=== PATIENT | female | born 1990 | race Caucasian/White ===

== ENCOUNTER 2020-12-16 10:32 | Outpatient (CLI) | payer OTHER, SELFPAY ==
[2020-12-16 19:07] LABS: Basophils Absolute Auto 0.1 K/mm3 (0.0-0.1); Basophils Percent Auto 0.3 % (0.2-1.2); Eosinophils Absolute Auto 0.2 K/mm3 (0-0.3); Eosinophils Percent Auto 1.4 % (0-4.4); Hemoglobin 10.5 g/dL (12.0-15.0); Immature Granulocyte Absolute 0.07 K/mm3 (0.00-0.031); Immature Granulocyte Percent A 0.5 % (0-0.5); Lymphocytes Absolute Auto 2.88 K/mm3 (0.9-3.2); Lymphocytes Percent Auto 19.9 % (18.3-44.2); Mean Corpuscular HGB Conc 31.8 g/dl (32-36); Mean Corpuscular Hemoglobin 27.8 pg (26-34); Mean Corpuscular Volume 87.3 fl (80-100); Mean Platelet Volume 9.5 fl (7.4-10.4); Monocytes Absolute Auto 0.8 K/mm3 (0.1-0.6); Monocytes Percent Auto 5.7 % (2.6-8.5); Neutrophils Absolute Auto 10.4 K/mm3 (1.3-6.7); Neutrophils Percent Auto 72.2 % (45.5-73.1); Platelet Count Result 372 k/mm3 (150-375); Red Blood Count 3.78 M/mm3 (4.2-5.4); Red Cell Distribution Width 15.5 % (11.5-14.5); White Blood Count 14.4 K/mm3 (4.5-10.0)
[2020-12-16 19:12] LABS: Add Urine Microscopic? YES; Appearance Urine Cloudy (Clear); Bacteria Urine Trace /hpf; Bilirubin Urine Negative (Negative); Blood Urine Negative (Negative); Color Urine Yellow (Yellow); Glucose Urine UA Negative (Negative); Ketones Urine Negative (Negative); Leukocyte Esterase Ur 1+ LEU/UL (NEGATIVE); Mucus Urine Rare /lpf; Nitrate Urine Negative (Negative); Protein Urine Negative (Negative); RBC Urine 0-2 /hpf (0-2); Specific Grav Ur 1.011 (1.001-1.035); Squamous Epithelial Cell Urine Many /hpf (Few); Urobilinogen Urine Negative mg/dL (<2.0); WBC Urine 0-3 /hpf (0-3)
[2020-12-16 19:35] LABS: Vitamin D 25 Hydroxy 20.3 ng/mL
[2020-12-16 19:52] LABS: Hepatitis B Surface Antigen Negative (Negative); Rubella IgG Antibody 16.9 IU/ML
[2020-12-16 20:01] LABS: HIV 1/2 Ab P24 Ag Result Negative (Negative)
[2020-12-16 20:08] LABS: Hepatitis C Virus Antibody Negative (Negative)
[2020-12-17 09:25] LABS: Rapid Plasma Reagin Non-Reactive (NonReactive)
== END 2020-12-16 10:33 | disposition home or self-care (01) ==
LOC: ANHBWCLAB 10:34
PROVIDERS: Visit Provider Obstetrics & Gynecology
DX: Z34.90 Encounter for supervision of normal pregnancy, unspecified, unspecified trimester (principal); Z3A.00 Weeks of gestation of pregnancy not specified
CPT/HCPCS: 36415; 81001; 82306; 84443; 85025; 86592; 86703; 86762; 86787; 86803; 86850; 86900; 86901; 87086; 87088; 87340; G0432

== ENCOUNTER 2021-01-11 14:23 | Outpatient (CLI) | payer OTHER, SELFPAY ==
[2021-01-11] VITALS (9 sets, daily range): BP systolic 121–131; BP diastolic 64–76; PULSE 70–82
[2021-01-11 15:48] LABS: Alanine Aminotransferase 12 U/L (4-35); Albumin Level 3.9 g/dL (3.5-5.1); Alkaline Phosphatase 88 U/L (38-126); Anion Gap 7 mmol/L (8-16); Aspartate Amino Transferase 19 U/L (14-36); Bilirubin,Total 0.4 mg/dL (0.2-1.3); Blood Urea Nitrogen 7 mg/dL (7-17); Calcium 8.7 mg/dL (8.4-10.2); Carbon Dioxide 23 mmol/L (22-30); Chloride 105 mmol/L (98-107); Estimated Glomerular Filt Rate > 60; Glucose 78 mg/dL (65-110); Potassium 3.3 mmol/L (3.4-5.0); Sodium 135 mmol/L (137-145)
[2021-01-11 15:51] LABS: Basophils Absolute Auto 0.1 K/mm3 (0.0-0.1); Basophils Percent Auto 0.3 % (0.2-1.2); Eosinophils Absolute Auto 0.1 K/mm3 (0-0.3); Eosinophils Percent Auto 0.7 % (0-4.4); Hematocrit 31.2 % (37.0-47.0); Hemoglobin 10.2 g/dL (12.0-15.0); Immature Granulocyte Absolute 0.08 K/mm3 (0.00-0.031); Immature Granulocyte Percent A 0.6 % (0-0.5); Lymphocytes Absolute Auto 2.81 K/mm3 (0.9-3.2); Lymphocytes Percent Auto 19.6 % (18.3-44.2); Mean Corpuscular HGB Conc 32.7 g/dl (32-36); Mean Corpuscular Volume 85.7 fl (80-100); Mean Platelet Volume 9.3 fl (7.4-10.4); Monocytes Absolute Auto 0.9 K/mm3 (0.1-0.6); Monocytes Percent Auto 6.5 % (2.6-8.5); Neutrophils Absolute Auto 10.3 K/mm3 (1.3-6.7); Neutrophils Percent Auto 72.3 % (45.5-73.1); Platelet Count Result 375 k/mm3 (150-375); Red Blood Count 3.64 M/mm3 (4.2-5.4); White Blood Count 14.3 K/mm3 (4.5-10.0)
[2021-01-11 15:53] LABS: Add Urine Microscopic? YES; Appearance Urine Clear (Clear); Bilirubin Urine Negative (Negative); Blood Urine Negative (Negative); Color Urine Yellow (Yellow); Glucose Urine UA Negative (Negative); Ketones Urine Trace mg/dL (Negative); Leukocyte Esterase Ur Trace LEU/UL (NEGATIVE); Mucus Urine Rare /lpf; Nitrate Urine Negative (Negative); Protein Urine 1+ mg/dL (Negative); RBC Urine 0-2 /hpf (0-2); Specific Grav Ur 1.017 (1.001-1.035); Squamous Epithelial Cell Urine Rare /hpf (Few)
[2021-01-11 16:30] LABS: Creatinine Urine 199.1 mg/dL; Total Protein Urine Random 14 mg/dL; Ur Ttl Prot Creatinine Ratio 0.07 mg/mg (0-0.20)
--- NOTE | 2021-01-11 16:30 | PC.NURSE ---
Called Dr. Chow with pt status. Lab results and BPs given. Informed that pt is complaining of headache, nausea, vomiting and BP with systolic of 140's. Informed of variable noted on FHTs. October D/C home.
== END 2021-01-11 16:49 | disposition home or self-care (01) ==
LOC: ANHOBOP 14:29 → ANHOBPP 14:32
PROVIDERS: Visit Provider Obstetrics & Gynecology
DX: O13.9 Gestational [pregnancy-induced] hypertension without significant proteinuria, unspecified trimester (principal); R51.9 Headache, unspecified; R11.2 Nausea with vomiting, unspecified; Z3A.00 Weeks of gestation of pregnancy not specified
CPT/HCPCS: 36415; 80053; 81001; 82570; 84156; 84550; 85025; 87086; 87088; 99199

== ENCOUNTER 2021-02-24 11:14 | Outpatient (CLI) | payer OTHER, SELFPAY ==
[2021-02-24 19:33] LABS: Basophils Absolute Auto 0.1 K/mm3 (0.0-0.1); Basophils Percent Auto 0.4 % (0.2-1.2); Eosinophils Absolute Auto 0.2 K/mm3 (0-0.3); Eosinophils Percent Auto 1.3 % (0-4.4); Hematocrit 31.2 % (37.0-47.0); Immature Granulocyte Absolute 0.16 K/mm3 (0.00-0.031); Immature Granulocyte Percent A 1.1 % (0-0.5); Lymphocytes Absolute Auto 2.36 K/mm3 (0.9-3.2); Lymphocytes Percent Auto 16.9 % (18.3-44.2); Mean Corpuscular HGB Conc 32.1 g/dl (32-36); Mean Corpuscular Hemoglobin 28.9 pg (26-34); Mean Corpuscular Volume 90.2 fl (80-100); Mean Platelet Volume 10.1 fl (7.4-10.4); Monocytes Absolute Auto 0.8 K/mm3 (0.1-0.6); Monocytes Percent Auto 5.5 % (2.6-8.5); Neutrophils Absolute Auto 10.4 K/mm3 (1.3-6.7); Neutrophils Percent Auto 74.8 % (45.5-73.1); Platelet Count Result 379 k/mm3 (150-375); Red Blood Count 3.46 M/mm3 (4.2-5.4)
[2021-02-24 19:43] LABS: Glucose 1 Hour PP 50gm Dose 140 mg/dL
[2021-02-24 20:20] LABS: HIV 1/2 Ab P24 Ag Result Negative (Negative)
== END 2021-02-24 11:15 | disposition home or self-care (01) ==
LOC: ANHBWCLAB 11:15
PROVIDERS: Visit Provider Obstetrics & Gynecology
DX: Z34.90 Encounter for supervision of normal pregnancy, unspecified, unspecified trimester (principal); Z3A.00 Weeks of gestation of pregnancy not specified
CPT/HCPCS: 36415; 82947; 85025; 86703; G0432

== ENCOUNTER 2021-03-16 16:37 | Outpatient (CLI) | payer OTHER, SELFPAY ==
[2021-03-16] VITALS (11 sets, daily range): BP systolic 118–129; BP diastolic 62–76; PULSE 71–87
[2021-03-16 17:45] LABS: Basophils Absolute Auto 0.1 K/mm3 (0.0-0.1); Basophils Percent Auto 0.3 % (0.2-1.2); Eosinophils Absolute Auto 0.1 K/mm3 (0-0.3); Eosinophils Percent Auto 0.7 % (0-4.4); Hematocrit 31.3 % (37.0-47.0); Hemoglobin 10.3 g/dL (12.0-15.0); Immature Granulocyte Absolute 0.17 K/mm3 (0.00-0.031); Lymphocytes Absolute Auto 2.95 K/mm3 (0.9-3.2); Mean Corpuscular HGB Conc 32.9 g/dl (32-36); Mean Corpuscular Hemoglobin 28.9 pg (26-34); Mean Corpuscular Volume 87.9 fl (80-100); Mean Platelet Volume 9.4 fl (7.4-10.4); Monocytes Absolute Auto 0.9 K/mm3 (0.1-0.6); Monocytes Percent Auto 5.2 % (2.6-8.5); Neutrophils Absolute Auto 12.2 K/mm3 (1.3-6.7); Neutrophils Percent Auto 74.8 % (45.5-73.1); Platelet Count Result 380 k/mm3 (150-375); Red Blood Count 3.56 M/mm3 (4.2-5.4); White Blood Count 16.4 K/mm3 (4.5-10.0)
[2021-03-16 17:52] LABS: Add Urine Microscopic? YES; Appearance Urine Clear (Clear); Bacteria Urine Trace /hpf; Bilirubin Urine Negative (Negative); Blood Urine Negative (Negative); Color Urine Straw (Yellow); Glucose Urine UA Negative (Negative); Ketones Urine Negative (Negative); Leukocyte Esterase Ur Trace LEU/UL (NEGATIVE); Nitrate Urine Negative (Negative); Protein Urine Negative (Negative); RBC Urine 0-2 /hpf (0-2); Specific Grav Ur 1.005 (1.001-1.035); Squamous Epithelial Cell Urine Few /hpf (Few); Urobilinogen Urine Negative mg/dL (<2.0); WBC Urine 0-3 /hpf (0-3)
[2021-03-16 18:09] LABS: Alanine Aminotransferase 11 U/L (4-35); Albumin Level 4.1 g/dL (3.5-5.1); Alkaline Phosphatase 122 U/L (38-126); Anion Gap 9 mmol/L (8-16); Aspartate Amino Transferase 17 U/L (14-36); Bilirubin,Total 0.3 mg/dL (0.2-1.3); Blood Urea Nitrogen 5 mg/dL (7-17); Calcium 8.7 mg/dL (8.4-10.2); Carbon Dioxide 20 mmol/L (22-30); Chloride 106 mmol/L (98-107); Estimated Glomerular Filt Rate > 60; Glucose 78 mg/dL (65-110); Potassium 3.9 mmol/L (3.4-5.0); Sodium 135 mmol/L (137-145); Uric Acid 4.2 mg/dL (2.5-7.5)
[2021-03-16 19:55] LABS: Creatinine Urine 35.1 mg/dL; Total Protein Urine Random 13 mg/dL; Ur Ttl Prot Creatinine Ratio 0.37 mg/mg (0-0.20)
--- NOTE | 2021-03-16 20:08 | PC.NURSE ---
called Dr. Chow @2006- labs reviewed. pt states that she no longer has a headache and is feeling better. BP's reviewed. no concerns for pre-eclampsia at this time. pt may d/c home with instructions to let the office know if she has any further persistent headaches.
== END 2021-03-16 20:17 | disposition home or self-care (01) ==
LOC: ANHOBOP 16:47 → ANHOBPP 16:48
PROVIDERS: Visit Provider Obstetrics & Gynecology
DX: O13.9 Gestational [pregnancy-induced] hypertension without significant proteinuria, unspecified trimester (principal); Z3A.00 Weeks of gestation of pregnancy not specified
CPT/HCPCS: 36415; 59025; 80053; 81001; 82570; 84156; 84550; 85025; 87086; 87088; 99199; A9270

== ENCOUNTER 2021-04-06 08:18 | Outpatient (CLI) | payer OTHER, SELFPAY ==
[2021-04-06 09:20] LABS: Glucose Fasting Gestational 121 mg/dL (>/=95)
[2021-04-06 11:17] LABS: Glucose 1 Hour Gest 242 mg/dL (>/=180)
[2021-04-06 12:19] LABS: Glucose 2 Hour Gest 244 mg/dL (>/= 155)
[2021-04-06 13:24] LABS: Glucose 3 Hour Gest 120 mg/dL (>/=140)
== END 2021-04-06 08:19 | disposition home or self-care (01) ==
LOC: ANHLAB 08:23
PROVIDERS: Visit Provider Obstetrics & Gynecology
DX: R73.09 Other abnormal glucose (principal)
CPT/HCPCS: 36415; 82951; 82952

== ENCOUNTER 2021-05-12 15:40 | Outpatient (RCR) | payer OTHER, SELFPAY ==
[2021-04-09 13:57] VITALS: PULSE 97
[2021-05-12 16:16] VITALS: BP 118/86; PULSE 92
== END 2021-06-03 13:47 | disposition home or self-care (01) ==
LOC: ANHOBOP 15:40
PROVIDERS: Visit Provider Obstetrics & Gynecology
DX: O24.419 Gestational diabetes mellitus in pregnancy, unspecified control (principal); Z3A.33 33 weeks gestation of pregnancy; O26.893 Other specified pregnancy related conditions, third trimester; R03.0 Elevated blood-pressure reading, without diagnosis of hypertension; Z3A.37 37 weeks gestation of pregnancy
CPT/HCPCS: 59025

== ENCOUNTER 2021-05-18 12:13 | Outpatient (CLI) | payer OTHER, SELFPAY ==
[2021-05-18 12:38] LABS: Hematocrit 31.4 % (37.0-47.0); Hemoglobin 10.2 g/dL (12.0-15.0); Mean Corpuscular HGB Conc 32.5 g/dl (32-36); Mean Corpuscular Hemoglobin 27.2 pg (26-34); Mean Corpuscular Volume 83.7 fl (80-100); Mean Platelet Volume 9.5 fl (7.4-10.4); Platelet Count Result 430 k/mm3 (150-375); Red Blood Count 3.75 M/mm3 (4.2-5.4); Red Cell Distribution Width 14.5 % (11.5-14.5); White Blood Count 14.1 K/mm3 (4.5-10.0)
[2021-05-19 13:25] LABS: Rapid Plasma Reagin Non-Reactive (NonReactive)
== END 2021-05-18 12:14 | disposition home or self-care (01) ==
LOC: ANHLAB 12:15
PROVIDERS: Visit Provider Obstetrics & Gynecology
DX: Z34.93 Encounter for supervision of normal pregnancy, unspecified, third trimester (principal); Z3A.00 Weeks of gestation of pregnancy not specified
CPT/HCPCS: 36415; 85027; 86592; 86850; 86900; 86901

== ENCOUNTER 2021-05-19 05:25 | Inpatient (IN) | payer OTHER, SELFPAY ==
--- NOTE | 2021-05-04 14:17 | PC.NURSE ---
VERIFIED WITH OR SCHEDULE AND PATIENT -C/S WITH TUBAL LIGATION ON 05/19/21 AT 0730--CONSENTS SIGNED PATIENT GIVEN REQUISITION FOR PRE-OP LAB DRAW ON 05/18/21
--- NOTE | 2021-05-18 13:04 | PM.IMHP ---
H&P: HPI History of Present Illness Date/Time: 05/18/21 13:04 30 y/o at 39+0 coming in for repeat C/S + BTL. has been complicated by GDMA2 on insulin. No complaints today Chief Complaint: prior C section and desires sterilization Review of Systems Review of Systems: All systems reviewed & are unremarkable except as noted in HPI and below PMFSH Past Medical History Medical History Anxiety Surgical History Surgical History Previous section x1 [place] teeth extracted Family History Family History Father Bladder cancer Hypertension Mother Lupus Multiple sclerosis Grandparent Lung cancer Hypertension Heart problem Social History Social History Smoking status: Former smoker Alcohol intake: never Substance use: never Substance use type: marijuana Spiritual care concerns: No Meds Home Medications and Allergies Home Medications Medication Instructions Recorded Confirmed Type docosahexaenoic acid 200 mg capsule mg PO 10/09/20 04/27/21 History aspirin 81 mg chewable tablet 81 mg PO DAILY 03/12/21 04/27/21 History insulin NPH isoph U-100 human 2 unit SUBCUT HS 05/04/21 05/04/21 History [Humulin N NPH Insulin KwikPen] insulin NPH isoph U-100 human 12 unit SUBCUT QAM 05/04/21 05/04/21 History [Humulin N NPH Insulin KwikPen] Allergies Allergy/AdvReac Type Severity Reaction Status Date / Time No Known Allergies Allergy Verified 05/06/21 10:41 Exam Const: General: healthy appearing, no acute distress, alert and awake Resp: Auscultation: clear to auscultation bilaterally Cardio: Rate: regular rate Rhythm: regular rhythm GI: Inspection: non-distended GI Palp: Yes Soft to palpation, No Tenderness to palpation present (GI) and Yes Other GI palpation findings present (gravid) Extrem: General: no pedal edema and no calf tenderness Psych: Mental Status: mental status grossly normal Assessment and Plan Assessment and plan (1) Previous delivery affecting : Code(s): O34.219 - Maternal care for unspecified type scar from previous delivery Status: Acute Assessment and Plan: She declines trial of labor and opted and signed consent for repeat C section after risks, benefits, complications, and alternatives discussed. Proceed with repeat C/S (2) Encounter for sterilization: Code(s): Z30.2 - Encounter for sterilization Status: Acute Assessment and Plan: She has expressed a desire for sterilization throughout and continued desire for that today, so proceed with BTL along with C section (3) Diabetes mellitus, gestational: Code(s): O24.419 - Gestational diabetes mellitus in , unspecified control Status: Acute Assessment and Plan: Controlled with insulin
--- NOTE | 2021-05-18 18:07 | WPDANESEPPF ---
Anes - Initial Pre Proc Eval Procedure: Operation Date: 05/19/21 07:30 Proposed Procedures p Section With Tubal Ligation - Josi Chow MD Date/Time: 05/18/21 18:07 Surgeon: Josi Chow MD Pre Op Diagnosis: Repeat , Vol Sterilization Patient Data Age: 30 Gender: F Height: Weight: Allergies Allergy/AdvReac Type Severity Reaction Status Date / Time No Known Allergies Allergy Verified 05/06/21 10:41 Home Medications Medication Instructions Recorded Confirmed Type docosahexaenoic acid 200 mg capsule mg PO 10/09/20 04/27/21 History aspirin 81 mg chewable tablet 81 mg PO DAILY 03/12/21 04/27/21 History insulin NPH isoph U-100 human 2 unit SUBCUT HS 05/04/21 05/04/21 History [Humulin N NPH Insulin KwikPen] insulin NPH isoph U-100 human 12 unit SUBCUT QAM 05/04/21 05/04/21 History [Humulin N NPH Insulin KwikPen] Patient hx anesthesia problems: none Family hx anesthesia problems: none Results Review: All pre-operative results and documents have been reviewed as part of the pre-operative evaluation. [facility] Past Medical History Medical History (Updated 05/18/21 @ 18:07 by Kj Corona DO) Anxiety Diabetes mellitus, gestational Surgical History Surgical History (Updated 05/18/21 @ 13:08 by Josi Chow MD) Previous section x1 [place] teeth extracted Family History Family History Father Bladder cancer Hypertension Mother Lupus Multiple sclerosis Grandparent Lung cancer Hypertension Heart problem Social History Social History Smoking status: Former smoker Alcohol intake: never Substance use: never Substance use type: marijuana Spiritual care concerns: No Anes - Eval Final PreProcedure Day of Procedure 05/18/21 18:07 Patient weight: obese Heart: regular rate and rhythm Lungs: clear to auscultation and normal air movement Airway: Mallampati scale class II Neurological: alert and oriented Last oral intake: >/= 8 hours ASA classification: III Emergent: no Anesthetic plan: proceed Anesthesia type and monitoring: regional spinal and standard monitoring Results Review: All pre-operative results and documents have been reviewed as part of the pre-operative evaluation. Informed Consent: The patient's anesthetic plan and its attendant risks and benefits were discussed with the patient/family/POA. Questions were solicited and answers provided to the satisfaction of the patient/family/POA.
[2021-05-19] VITALS (74 sets, daily range): BP systolic 84–142; BP diastolic 49–108; PULSE 58–191; RESP 15–18; TEMP 36.4–37.1; O2SAT 88–100; BMI 37.1
[2021-05-19] MEDS: LACTATED RINGERS 1,000 ML 125 ML IV CONT (05:56)
[2021-05-19 06:00] LABS: Glucose Point of Care 106 mg/dl (65-105)
--- NOTE | 2021-05-19 06:19 | LDADM ---
This patient, Vanna Ortiz, was admitted to Labor/Delivery/Recovery 120 on 05/19/21 at 05:25. Plans for section, pain management and were discussed with patient. Patient/family oriented to hospital policies and general routines including ID bracelet, bed and alarms, visiting hours, pain management, procedures, bathroom and other care routines, personal items, smoking policy, room service/diet and guest tray routines, security routines, and visiting hours. Patient/Family are encouraged to report perceived risks to care and to ask questions if they do not understand what they are told or what they should do. See OBIX for further documentation.
--- NOTE | 2021-05-19 07:07 | WPDHPUPDATE1 ---
History and Physical Update Update Date/Time: 05/19/21 07:07 History and Physical has been reviewed, including an updated exam of the patient. There are NO changes in the patient's condition. Risks, benefits, and alternatives have been discussed and questions answered. Patient agrees to proceed with procedure.
[2021-05-19] MEDS: ceFAZolin 2 GM/D5W 50 ML 2 GM/50 ML BAG IVPB (07:10)
--- NOTE | 2021-05-19 07:10 | P.OP_ITS ---
Procedure Note - Detailed Date of Procedure 05/19/21 Pre-op Diagnosis Repeat , Vol Sterilization Post-op Diagnosis same Procedure Performed Repeat LTCS + BTL Surgeon Josi Chow MD Anesthesia spinal Indications 39 weeks gestation with h/o previous c section, desires sterilization Findings Female infant, cephalic, nuchal cord X1; 6# 15oz; Apgars 7/9; normal uterus, tubes, ovaries Description of Procedure She was taken to the operating room where spinal anesthesia was obtained and found be adequate. She was prepared and draped in the normal sterile fashion in the dorsal supine position with a leftward tilt. Pfannenstiel skin incision was made over her prior incision with the scalpel and extended to the underlying layer of fascia. The fascia was incised in the midline with the scalpel and ex tended laterally with the Velasco scissors. The underlying rectus muscles were dissected off bluntly and sharply. The rectus muscles were . Peritoneum was entered sharply and extended inferiorly and superiorly with good visualization of the bladder. The bladder blade was inserted. The vesicouterine peritoneum was entered sharply and extended laterally with the Metzenbaum scissors. The bladder flap was created sharply. The bladder blade was reinserted. The lower uterine segment was incised in a transverse fashion with scalpel. The incision was digitally stretched in a cephalocaudal direction. The membranes were ruptured with clear fluid noted. The 's head was delivered atraumatically. There was a loose nuchal cord x1 which was reduced easily. The shoulders and body were delivered easily. The cord was clamped x2 and cut. The infant was passed to the waiting nurse. Cord gas and cord blood was obtained. The placenta was manually extracted. Uterus was exteriorized and cleared of all clots and debris. The uterine incision was closed using 0 Vicryl in a running locked fashion. A 2nd layer of 0 Vicryl was used for hemostasis and reinforcement. The uterus was returned to the abdomen. The gutters were cleared of all clots and debris. The uterine incision was reinspected and found to be hemostatic. The uterus was exteriorized 1 stick once again. Attention was turned to the right fallopian tube. The mesosalpinx was cauterized to make a small defect in the mid isthmic portion. Two free ties of 0 plain gut were placed and the intervening segment segment of tube was excised. The same procedure was performed on the left fallopian tube. Both tubes as well as the uterine incision was still found to be hemostatic. The uterus was returned to the abdomen. The rectus muscles were inspected. Any bleeding points were cauterized. The rectus muscles were reapproximated using an 0 Vicryl [id number] suture. The fascia was closed using 0 Vicryl in a running fashion. The subcutaneous tissue was irrigated. All bleeding points were cauterized. Subcutaneous tissue was reapproximated using 2 0 Vicryl [id number] sutures. The skin was closed using Insorb absorbable dia. She tolerated the procedure well. Sponge, lap, needle, and instrument counts were correct x2. She was taken to the recovery area in stable condition. Estimated Blood Loss 420 Drains Yes (Orr) Packing No Pathology yes Complications No immediate complications Condition stable Disposition floor
[2021-05-19] MEDS: KETOROLAC 30 MG/ML VIAL (*BKC) 15 MG IV PUSH (07:39)
[2021-05-19] MEDS: MORPHINE SULFATE INJ (*CRX) 10 MG/ML AMP 2 MG IV PUSH (09:43)
[2021-05-19] MEDS: OXYTOCIN 30 UNITS/NS 500 ML 30 UNITS/500 ML BAG 125 UNITS IV CONT (10:06)
--- NOTE | 2021-05-19 10:50 | PC.NURSE ---
This patient, Vanna Ortiz, was received from [facility] on 05/19/21 at 1050. Patient/family oriented to unit policies and routines
--- NOTE | 2021-05-19 13:05 | PC.NURSE ---
Mother called out for assist with feeding, reporting is sleepy. Infant eagerly fed first feeding after C/S. Mother pumped and bottle fed with first due to infant is able to freely thrust tongue past gum ridge and flange both lips. Skin is intact on both nipples, no redness and bruising noted. Reviewed feeding cues, frequencies, duration of feedings, feeding elimination flow sheet, and signs of adequate intake. Demonstrated stimulation techniques to wake infant for feeding. Assisted with infant to breast. Reviewed positioning/alignment in cross cradle, holding breast in ?U? hold and guided asymmetrical latch on. Reviewed rational for each. Infant able to latch correctly within a few attempts. nursed eagerly with steady draws and occasional swallowing noted, some pausing noted. Reviewed signs of a correct latch, effective nursing and suck swallow ratio. Suggested mother stimulate while feeding to increase stimulation for milk supply, for increased intake and to assist with maintaining deep latch. Infant would slip to shallow latch causing tenderness. Demonstrated how to adjust latch more deeply while feeding as needed. Mother reports she can feel the difference in latch with no/less tenderness. Nipple care reviewed of lanolin after feedings, warm compresses as needed. Instructed mother to call out for RN assistance if she is unable to latch infant for feeding or she has discomfort with nursing. Instructed feeding should be initiated three hours from start of last feeding or if feeding cues are noted before. Mother voiced understanding of information shared.
[2021-05-19] MEDS: KETOROLAC 30 MG/ML VIAL (*BKC) IV PUSH (14:33)
[2021-05-19] MEDS: DEXTROSE 5%/0.45% SOD CHL 1,000 ML 125 ML IV CONT ×2 (14:39→23:00)
[2021-05-19] MEDS: HYDROcodone/acetaminophen (*CRX) 5-325 MG TABLET 1 TAB PO (22:13)
[2021-05-20 04:37] VITALS: BP 129/78; PULSE 85; RESP 18; TEMP 36.7
[2021-05-20] MEDS: IBUPROFEN 600 MG TABLET PO ×2 (04:53→14:06)
[2021-05-20] MEDS: HYDROcodone/acetaminophen (*CRX) 10-325 MG TABLET 1 TAB PO ×4 (04:54→18:54)
[2021-05-20 06:00] LABS: Basophils Absolute Auto 0.1 K/mm3 (0.0-0.1); Basophils Percent Auto 0.3 % (0.2-1.2); Eosinophils Absolute Auto 0.3 K/mm3 (0-0.3); Eosinophils Percent Auto 1.6 % (0-4.4); Hemoglobin 8.4 g/dL (12.0-15.0); Immature Granulocyte Absolute 0.13 K/mm3 (0.00-0.031); Immature Granulocyte Percent A 0.8 % (0-0.5); Lymphocytes Absolute Auto 3.62 K/mm3 (0.9-3.2); Lymphocytes Percent Auto 22.5 % (18.3-44.2); Mean Corpuscular HGB Conc 32.3 g/dl (32-36); Mean Corpuscular Hemoglobin 26.9 pg (26-34); Mean Corpuscular Volume 83.3 fl (80-100); Mean Platelet Volume 9.9 fl (7.4-10.4); Monocytes Percent Auto 6.4 % (2.6-8.5); Neutrophils Percent Auto 68.4 % (45.5-73.1); Platelet Count Result 416 k/mm3 (150-375); Red Blood Count 3.12 M/mm3 (4.2-5.4); Red Cell Distribution Width 14.5 % (11.5-14.5); White Blood Count 16.1 K/mm3 (4.5-10.0)
[2021-05-20 07:45] VITALS: BP 118/79; PULSE 70; RESP 18; TEMP 36.1; O2SAT 100
--- NOTE | 2021-05-20 07:52 | PM.OBPNVD ---
OB - PN: Subj Subjective Date/time seen: 05/20/21 07:52 Patient comments: no complaints, pain well controlled, incisional pain, tolerating diet, flatus present and other (Lochia similar to menses) baby status: doing well OB - PN: Obj Data Labs CBC & Chem 7: 05/20/21 04:31 Labs: Laboratory Results - last 24 hr 05/20/21 04:31 WBC 16.1 H RBC 3.12 L Hgb 8.4 L Hct 26.0 L MCV 83.3 MCH 26.9 MCHC 32.3 RDW 14.5 Plt Count 416 H MPV 9.9 Immature Gran % (Auto) 0.8 H Neut % (Auto) 68.4 Lymph % (Auto) 22.5 Sharp % (Auto) 6.4 Eos % (Auto) 1.6 Baso % (Auto) 0.3 Lymph # (Auto) 3.62 H Sharp # (Auto) 1.0 H Eos # (Auto) 0.3 Baso # (Auto) 0.1 Abs Immat Gran (auto) 0.13 H Absolute Neuts (auto) 11.0 H Absolute Nucleated RBC 0.0 Nucleated RBC % 0.0 OB - PN A/P Plan day: 1 (s/p C section, doing well) Plan: routine care Time Spent With Patient Time: Total time spent is greater than 50% in coordination of care (as documented) at patient's floor/unit and/or counseling patient: Exam Const: General: no acute distress Resp: Auscultation: clear to auscultation bilaterally Cardio: Rate: regular rate Rhythm: regular rhythm GI: Inspection: non-distended, incision (Intact without erythema, drainage, or induration) and other (Fundus firm and nontender at umbilicus) GI Palp: Yes abdominal tenderness (appropriate ) and Yes Soft to palpation Extrem: General: no edema
[2021-05-20] MEDS: POLYSACCHARIDE IRON COMPLEX 150 MG CAPSULE PO ×2 (08:44→16:37)
[2021-05-20] MEDS: DOCUSATE SODIUM 100 MG CAPSULE PO ×2 (08:44→16:37)
[2021-05-20] MEDS: MULTIVIT/MIN/PREN/FOL AC/IRON TABLET 1 TAB PO (08:44)
--- NOTE | 2021-05-20 10:02 | WPDANLDNPN2 ---
Anes-Prog Note L&D-Neuraxial Date/Time: 05/20/21 10:02 Neuraxial medications: intrathecal PF morphine Opiod-related complaints: none Patient feedback: Patient satisfied with post-operative pain management.
--- NOTE | 2021-05-20 10:02 | WPDANLDPN2 ---
Anes-Prog Note L&D Date/Time: 05/20/21 10:02 Comfortable throughout: section Neuraxial method: spinal Epidural/Spinal procedure site: clean & non-tender Neuro status: Neuro function grossly intact. Cardiovascular status: normal Respiratory status: normal Airway patency: baseline Mental status: baseline Post-Op hydration status: normal Vital Signs: Last Vital Signs Temp 36.1 C L 05/20/21 07:45 Pulse 70 05/20/21 07:45 Resp 18 05/20/21 07:45 BP 118/79 05/20/21 07:45 Pulse Ox 100 05/20/21 07:45 Pain score (VAS): 0 I/O: Intake & Output 05/19/21 05/20/21 05/20/21 23:59 07:59 15:59 Intake Total 1000 2200 Output Total 300 2450 Balance 700 -250 Post-procedural complaints: none Patient feedback: Patient satisfied with anesthetic care.
--- NOTE | 2021-05-20 11:05 | PC.NURSE ---
Mother called out for assist with feeding, reporting is sleepy and not latching. Mother began supplementation and pumping during the night due to infant not latching. Advised to wake infant before attempting to breast. Infant is able to freely thrust tongue past gum ridge and flange both lips tight frenulum noted. . Skin is intact on both nipples, no redness and bruising noted. Reviewed feeding cues, frequencies, duration of feedings, feeding elimination flow sheet, and signs of adequate intake. Demonstrated stimulation techniques to wake for feeding. Infant easily awoken within a few minutes, with feeding cues noted. Mother attempting infant in cradle, allowing to make attempts to self latch. Assisted with to breast. Reviewed positioning/alignment in cross cradle, holding breast in ?U? hold and guided asymmetrical latch on. Reviewed rational for each. Infant able to latch correctly within a few attempts. Infant nursed eagerly with steady draws and occasional swallowing noted, some pausing noted. Reviewed signs of a correct latch, effective nursing and suck swallow ratio. Suggested mother stimulate while feeding to increase stimulation for milk supply, for increased intake and to assist with maintaining deep latch. Infant would slip to shallow latch causing tenderness. Demonstrated how to adjust latch more deeply while feeding as needed. Mother reports she can feel the difference in latch with less tenderness. Advised to hold breast during entire feeding to assist infant with maintaining deep latch. Nipple care reviewed of lanolin after feedings, warm compresses as needed. Instructed mother to call out for RN assistance if she is unable to latch for feeding or she has discomfort with nursing. Instructed feeding should be initiated three hours from start of last feeding or if feeding cues are noted before. Mother voiced understanding of information shared.
[2021-05-20 18:44] VITALS: BP 143/88; PULSE 98; RESP 18; TEMP 36.5; O2SAT 97
[2021-05-21] VITALS: BP 140/96
[2021-05-21] MEDS: HYDROcodone/acetaminophen (*CRX) 5-325 MG TABLET 1 TAB PO ×3 (00:05→13:28)
[2021-05-21] MEDS: IBUPROFEN 600 MG TABLET PO ×3 (00:05→13:28)
[2021-05-21 05:38] VITALS: BP 112/60
--- NOTE | 2021-05-21 07:55 | PM.OBPNVD ---
OB - PN: Subj Subjective Date/time seen: 05/21/21 07:55 Patient comments: no complaints, pain well controlled, tolerating diet, flatus present and other (Ambulating and voiding without problems. Lochia similar to menses) baby status: doing well OB - PN: Obj Data Labs CBC & Chem 7: 05/20/21 04:31 OB - PN A/P Plan day: 2 (s/p C section, doing well) Plan: routine care and discharge home (Follow up in 1 week) Time Spent With Patient Time: Total time spent is greater than 50% in coordination of care (as documented) at patient's floor/unit and/or counseling patient: Time with patient: less than 15 minutes Exam Const: General: no acute distress Resp: Auscultation: clear to auscultation bilaterally Cardio: Rate: regular rate Rhythm: regular rhythm GI: Inspection: non-distended, incision (Intact without erythema, drainage, or induration) and other (Fundus firm and nontender below umbilicus) GI Palp: Yes abdominal tenderness (appropriate) and Yes Soft to palpation Extrem: General: no edema
--- NOTE | 2021-05-21 07:56 | PM.OBDSVD ---
DS: Admitting Diagnosis Discharge Date 05/21/2021 Admitting Diagnosis Previous C section, desires sterilization, GDMA2 DS: Discharge Diagnosis Discharge Diagnosis (1) S/P repeat low transverse : Code(s): Z98.891 - History of uterine scar from previous surgery Status: Acute (2) Encounter for sterilization: Code(s): Z30.2 - Encounter for sterilization Status: Acute (3) Diabetes mellitus, gestational: Code(s): O24.419 - Gestational diabetes mellitus in , unspecified control Status: Acute OB - DS: Summary OB Procedures : None OB Procedures Intrapartum: low cervical, transverse and Tubal ligation OB Procedures: : None Peripartum Data Infant Delivery Method: Section Procedures: Procedures Operation Date: 05/19/21 07:30 Actual Procedure Side Surgeon p Section Not Applicable Josi Chow MD complications: none Status at Discharge Functional status at discharge: independent ambulation Overall status at discharge: patient is progressing back to baseline Time Spent with Patient Time attestation: Total time spent providing and/or coordinating discharge services: Time spent: Less than 30 minutes DS: Data Data Completed and Pending Pending studies at discharge: Pending at discharge 05/19/21 08:37 Surgical [PTH] Routine Surgical [PTH] Routine Discharge Plan Discharge Attending physician on discharge: Josi Chow Discharging Clinician: Josi Chow Patient Disposition: Home, Self-Care Activity: may shower and pelvic rest Diet: as tolerated Wound Care Instructions: incision open to air Patient Instructions: Antibiotic Form Stand Alone Forms: General Discharge Information Follow-up/Referrals: Josi Chow MD [Physician] - 1 Week Discharge Medications: New hydrocodone-acetaminophen 5-325 mg Tablet 1 tablet PO Q4H PRN (Reason: Moderate Pain (4-6)) Qty: 30 RF: 0 ibuprofen 600 mg Tablet 600 mg PO Q6H PRN (Reason: Cramping) Qty: 60 RF: 0 Continued DHA 200 mg capsule PO RF: 0 Discontinued aspirin 81 mg tablet,chewable 81 mg PO DAILY RF: 0 Humulin N NPH Insulin KwikPen 100 unit/mL (3 mL) Insulin Pen 12 unit SUBCUT QAM RF: 0 Humulin N NPH Insulin KwikPen 100 unit/mL (3 mL) Insulin Pen 2 unit SUBCUT HS RF: 0 Date of admission: 05/19/21 05:25 Primary Care Provider: PHYSICIAN,[employer] Admitting Provider: Josi Chow Attending physician on admission: Josi Chow Condition: Stable
[2021-05-21 08:00] VITALS: BP 134/88; PULSE 97; RESP 18; TEMP 36.6; O2SAT 99
[2021-05-21] MEDS: DOCUSATE SODIUM 100 MG CAPSULE PO (08:49)
[2021-05-21] MEDS: POLYSACCHARIDE IRON COMPLEX 150 MG CAPSULE PO (08:49)
[2021-05-21] MEDS: MULTIVIT/MIN/PREN/FOL AC/IRON TABLET 1 TAB PO (08:49)
--- NOTE | 2021-05-21 09:23 | PC.NURSE ---
Breast feeding note; mother preparing for discharge home today. She reports she has been pumping and plans to exclusive pump and bottle feed infant as she did with her now [age] year old for one year. She reports her oldest was exclusively breast fed once her milk was in, by pumping and bottle feeding. Mother reports she is getting about 5mls per pumping session now, but is starting to feel breast changes. She reports comfortable pumping, no problems reported. Reviewed with her importance of pumping at each feeding, and at each feeding giving available breast milk first, then additional formula as baby desires until her volume increases. Reviewed q3-4h feedings, and as baby has more and more exclusive breast milk, baby can eat as often as she wants, working toward 8-12 feedings a day. Breast feeding pages flagged in pt's Mother Baby Guide, including safe storage of breast milk, care of breasts, and breast feeding support contact information. Reviewed feeding log for monitoring feedings and output per day of age. Mother attentive and voiced understanding of information shared. She seems very comfortable and confident in her feeding plan.
[2021-05-22 08:45] VITALS: BP 131/95; PULSE 82; RESP 20; TEMP 36.7; O2SAT 98
== END 2021-05-21 13:54 | disposition home or self-care (01) | DRG 785 ==
LOC: ANHLDR 05:29 → ANHOB2 10:53
PROVIDERS: Admitting Provider Obstetrics & Gynecology; Visit Provider Obstetrics & Gynecology
PROC: 10D00Z1 Extraction of Products of Conception, Low, Open Approach (ICD-10-PCS; CPT 59514; principal; 2021-05-19 07:30)
DX: O34.219 Maternal care for unspecified type scar from previous cesarean delivery (principal); O24.424 Gestational diabetes mellitus in childbirth, insulin controlled; O69.81X0 Labor and delivery complicated by cord around neck, without compression, not applicable or unspecified; Z3A.39 39 weeks gestation of pregnancy; Z37.0 Single live birth; Z30.2 Encounter for sterilization; Z87.891 Personal history of nicotine dependence
CPT/HCPCS: 36415; 82948; 85025; 85027; 86592; 86850; 86900; 86901; 88302; 88307; A9270; J0690; J1885; J2270; J2274; J2405; J2590; J7120